=== PATIENT | male | born 1990 ===

== ENCOUNTER 2023-05-10 07:35 | Outpatient (AMB) | payer BC, SELFPAY ==
[2023-05-10 07:44] VITALS: BP 102/52; PULSE 65; O2SAT 98; BMI 18.8
--- NOTE | 2023-05-10 07:44 | MHC.PC.OV ---
Vital Signs 05/10/23 07:44 Height 5 ft 11 in Weight 135 lb BMI 18.8 BP 102/52 L Blood Pressure Location Lt brachial Position Sitting Pulse 65 Pulse Source Pulse Oximeter Pulse Oximetry (%) 98 Oxygen Delivery Method Room Air Intake Visit Reasons: Physical exam Allergies No Known Allergies Allergy (Verified 05/10/23 07:53) Medication List - Last Reconciled 05/10/23 by ROMAN Mora No Known Home Meds Tobacco use date assessed: 05/10/23 Dental Screening Dental Screen Date: 05/10/23 Did you have a dental visit in the last 12 months?: Yes Did you have a dental problem in the last 6 months where you did not have access to dental care?: No Was dental information given to patient?: Patient has dentist HPI HPI Comments History of Present Illness Details 33-year-old male smoker, no significant past medical history. Patient of Dr. Oliva last seen in March 2021, patient presents today for physical exam. PPD implant done for work, implanted in office. Patient also states that he believes his tetanus shot is coming up on 10 years, TD immunization given in office today. Eye exam: recommended every couple of years Patient's mom called following this appointment to request albuterol inhaler for her son, patient called back confirmed he has history of asthma and since childhood and requires albuterol inhaler as needed for shortness of breath and wheezing that happens mostly at night couple times a week. Patient states has not recently had PFTs completed. Pulmonary function test order an albuterol inhaler sent to patient's pharmacy. [facility] Medical History Smoker Surgical History History of bilateral inguinal hernia repair History of tonsillectomy and adenoidectomy Family History (Updated 05/10/23 @ 07:54 by ROMAN Mora) Maternal Grandmother Pancreatic cancer Maternal Uncle Lung cancer Mother Hyperlipidemia Father Bladder cancer Social History (Updated 05/10/23 @ 07:55 by ROMAN Mora) Housing: Other Alcohol intake: former Patient Tobacco Use Status: Current everyday Tobacco user Tobacco use type: Cigarette Cigarettes Per Day: 10 e-Cigarette/Vaping Use: Never Used Second Hand Smoke Exposure: Yes Substance Use Type: Marijuana Current occupational status: employed Cognitive needs: No Hearing needs: No Vision needs: No Questionnaire PHQ-9 Over the last 2 weeks, how often have you been bothered by any of the following problems? 1. Little interest or pleasure in doing things: not at all 2. Feeling down, depressed, or hopeless: not at all 3. Trouble falling or staying asleep, or sleeping too much: not at all 4. Feeling tired or having little energy: not at all 5. Poor appetite or overeating: not at all 6. Feeling bad about yourself - or that you are a failure or have let yourself or your family down: not at all 7. Trouble concentrating on things, such as reading the newspaper or watching television: not at all 8. Moving or speaking so slowly that other people could have noticed. Or the opposite - being so fidgety or restless that you have been moving around a lot more than usual: not at all 9. Thoughts that you would be better off or of hurting yourself in some way: not at all Total score: 0 Depression Screening Interpretation: Negative 93518 - PHQ-9 Billing: Yes Source: Developed by Drs. Natanael Ferrer, Audra Muller, Tesfaye Bailey and colleagues, with an educational aamir from [employer]. Thrive Questionnaire Date Thrive assessed: 05/10/23 I am a: Patient What is your living situation today?: I have a steady place to live Within the past 12 months, did the food you bought not last and you didn't have the money to get more?: Never true Within the past 12 months, did you worry whether your food would run out before you got money to buy more?: Never true Do you have trouble paying for medicines?: No Do you have trouble getting transportation to medical appointments?: No Do you have trouble paying your heating and electricity bill?: No Do you have trouble taking care of your child, family member or friend?: No Do you have trouble with day-to-day activities such as bathing, preparing meals, shopping, managing finances, etc.?: No Are you currently unemployed and looking for a job?: No Are you interested in more education?: No Currently or been in a relationship where the following occur: no concerns reported AUDIT C Alcohol Use Questionnaire (AUDIT-C) 1. How often do you have a drink containing alcohol?: Never 3. How often do you have six or more drinks on one occasion?: Never Total Score: 0 THOM-7 AMB Questionnaire THOM-7 Date THOM - 7 assessed: 05/10/23 Feeling nervous, anxious, or on edge: 0 = Not at all Not being able to stop or control worryin = Not at all Worrying too much about different things: 0 = Not at all Trouble relaxin = Not at all Being so restless that it is hard to sit still: 0 = Not at all Becoming easily annoyed or irritable: 0 = Not at all Feeling afraid as if something awful might happen: 0 = Not at all Total THOM-7 score (0-4 normal; 5-9 mild; 10-14 moderate; 15-21 severe): 0 Source: Developed by Drs. Natanael Ferrer, Audra Muller, Tesfaye Bailey and colleagues, with an educational aamir from [employer]. THOM-7 Assessment Billing THOM-7 Assessment Tool: THOM-7 Assessment 39675 Review of Systems Const Denies chills, Denies fatigue, Denies fever(s) and Denies poor appetite Eyes Denies no additional complaints ENT Reports Normal hearing present Card Denies chest pain, Denies syncope, Denies rapid heart rate and Denies dyspnea Resp Denies cough and Denies dyspnea GI Denies change in stool character, Denies constipation, Denies diarrhea, Denies nausea and Denies vomiting Denies dysuria, Denies urinary frequency and Denies urinary urgency Neuro Reports Normal hearing present, Denies confusion and Denies syncope Psych Denies confusion Endo Denies fatigue Physical exam (Primary Care) Vital Signs: Last Vital Signs Pulse 65 05/10/23 07:44 BP 102/52 L 05/10/23 07:44 Pulse Ox 98 05/10/23 07:44 Oxygen Delivery Method Room Air 05/10/23 07:44 BMI result Body Mass Index 18.8 Tobacco/Smoking Status: Tobacco use Status Tobacco use date assessed 05/10/23 05/10/23 07:49 Patient Tobacco Use Status Current everyday Tobacco 05/10/23 07:55 Tobacco use type Cigarette 05/10/23 07:55 e-Cigarette/Vaping Use Never Used 05/10/23 07:55 PHQ-9: PHQ-9 Score PHQ-9: Total score 0 05/10/23 08:14 Depression Screening Interpretation: Negative Thrive Assessment: Date of Thrive Assessment Date Thrive assessed 05/10/23 05/10/23 07:49 Currently or been in a relationship where the following occur: no concerns reported Const General: No confusion Orientation/consciousness: No confusion HENMT Head: Yes normocephalic and Yes atraumatic Ears: external ears normal and TM's normal bilaterally General nose exam: Normal external nose present and Normal nasal mucous membranes and turbinates present Face and sinus: Yes normal facial exam and Yes sinuses nontender Mouth: moist mucous membranes Throat: Yes tonsils normal Eyes Conjunctivae: conjunctivae normal Sclerae: sclerae normal Pupils: Equal, round and reactive pupils present and Pupils normal by confrontation EOM: EOMs intact bilaterally Direct Ophthalmoscopy: normal light reflex Neck Neck: Yes no lymphadenopathy and Yes supple Thyroid: Thyroid normal Chest Chest palpation & inspection: normal inspection of the chest Resp Effort & Inspection: normal respiratory effort Auscultation: clear to auscultation bilaterally, no crackles, no rhonchi and no wheezes Cardio Rate: regular rate Rhythm: regular rhythm Peripheral pulses: radial pulses present and dorsalis pedis present GI Inspection: Yes normal to inspection Palpation (GI): Soft to palpation, nontender and No hepatosplenomegaly present Auscultation: normoactive bowel sounds Skin General skin exam: no rashes or lesions noted Neuro General: No confusion Cranial nerves: Yes Equal, round and reactive pupils present and Yes Normal hearing present Cognition (Neuro): normal cognition Gait exam (Neuro): Normal gait present Motor exam (neuro): 5/5 motor strength present throughout Deep tendon reflexes (DTR's): Right brachioradialis reflex intensity grade: 2+, Left brachioradialis reflex intensity grade: 2+, Right patellar reflex intensity grade: 2+ and Left patellar reflex intensity grade: 2+ Extrem General: No edema Office Meds tuberculin PPD Performing Provider: ROMAN Mora Administered by: Danica Krause RN on 05/10/23 08:15 Dose Route Admin Location Lot Number Expiration Date NDC Top Frame Fitter 0.1 mL intradermal [id number] 04/08/25 21897-696-61 [employer] Immunizations tetanus-diphtheria toxoids-Td Performing Provider: ROMAN Mora Administered by: Danica Karuse RN on 05/10/23 08:18 Dose Route Admin Location Lot Number Expiration Date NDC Top [employer] Fitter 0.5 mL IM Left Deltoid [id number] 03/06/24 [address]-3 [employer] VIS Given Date VIS Provided VIS Publication Date 05/10/23 Single Vaccine 21 Eligibility Eligibility Date Funding Source Not [facility] Eligible 05/10/23 State funds Assessment and Plan Assessment & Plan (1) Smoker: Code(s): F17.200 - Nicotine dependence, unspecified, uncomplicated Plan: Continues to smoke 10 cigarettes daily. Does not express interest in quitting at this time. (2) Annual physical exam: Code(s): Z00.00 - Encounter for general adult medical examination without abnormal findings Plan: TD given in office PPD implanted for work. Physical form given Fasting labs ordered. Follow up in 1 year. (3) Asthma: Code(s): J45.909 - Unspecified asthma, uncomplicated Plan: Albuterol inhaler p.r.n. for shortness breath and wheezing sent to patient's pharmacy. PFTs ordered. Signs and symptoms reviewed with patient when to follow-up with PCP or seek emergency medical attention. Patient agreeable to plan of care Plan Follow up in 1 year for physical exam. Orders: Orders PFT pulmonary function test Today J45.909 - Unspecified asthma, uncomplicated Td State Immunization Today Z23 - Encounter for immunization AMB PPD Planted Today Z11.1 - Encounter for screening for respiratory tuberculosis Medications: New albuterol sulfate 90 mcg/actuation 2 inhalations inhalation Q4-6H PRN 1 ea 0RF shortness of breath or wheezing J45.909 - Unspecified asthma, uncomplicated Coding Level of Care Code Est Pt Prev Care 18-39y(53250) Diagnoses Smoker F17.200 Annual physical exam Z00.00 Asthma J45.909 Additional Codes THOM-7 Assessment Billing - THOM-7 Assessment Tool: THOM-7 Assessment [id number] ([id number])
--- NOTE | 2023-05-10 08:18 | AM.OFFVISNUR ---
Intake Vital Signs 05/10/23 07:44 Height 5 ft 11 in Weight 135 lb BMI 18.8 BP 102/52 L Blood Pressure Location Lt brachial Position Sitting Pulse 65 Pulse Source Pulse Oximeter Pulse Oximetry (%) 98 Oxygen Delivery Method Room Air Intake Visit Reasons: Physical exam Allergies No Known Allergies Allergy (Verified 05/10/23 07:53) Medication List - Last Reconciled 05/10/23 by ROMAN Mora No Known Home Meds Office Meds tuberculin PPD Performing Provider: ROMAN Mora Administered by: Danica Krause RN on 05/10/23 08:15 Dose Route Admin Location Lot Number Expiration Date [facility] Aqua Ammonia Operator 0.1 mL intradermal [id number] 04/08/25 77687-578-72 [employer] Immunizations tetanus-diphtheria toxoids-Td Performing Provider: ROMAN Mora Administered by: Danica Krause RN on 05/10/23 08:18 Dose Route Admin Location Lot Number Expiration Date [facility] Aqua Ammonia Operator 0.5 mL IM Left Deltoid [id number] 03/06/24 [address]-2 [employer] VIS Given Date VIS Provided VIS Publication Date 05/10/23 Single Vaccine 21 Eligibility Eligibility Date Funding Source Not [facility] Eligible 05/10/23 State funds Coding Diagnoses Smoker F17.200 Annual physical exam Z00.00 Assessment & Plan Assessment & Plan (1) Smoker: Code(s): F17.200 - Nicotine dependence, unspecified, uncomplicated (2) Annual physical exam: Code(s): Z00.00 - Encounter for general adult medical examination without abnormal findings Orders: Orders Td State Immunization Today Z23 - Encounter for immunization AMB PPD Planted Today Z11.1 - Encounter for screening for respiratory tuberculosis
== END 2023-05-10 08:21 | disposition home or self-care (01) ==
PROVIDERS: PCP Internal Medicine; Visit Provider Nurse Practitioner Family
DX: Z00.00 Encounter for general adult medical examination without abnormal findings (principal); F17.200 Nicotine dependence, unspecified, uncomplicated; J45.909 Unspecified asthma, uncomplicated
CPT/HCPCS: 86580; 90471; 90714; 99395